=== PATIENT | female | born 1950 | race Caucasian/White ===

== ENCOUNTER → 2016-11-26 | Outpatient (CLI) | payer MEDICARE, BC ==
[~2016-11-26] MED LIST: ASPIRIN81 M2 PO; ASPIRIN81 MG PO; AUGMENTIN PO; BENICAR PO; COD LIVER OIL1 CA1 PO; FISH OIL 1,2001 EAC1 PO; HYDROCODON-ACE1 EAC9 PO; LEVOTHYROXINE50 MCG PO; LOSARTAN-HCTZ1 EAC3 PO; MELOXICAM15 MG PO; NIACIN500 M2 PO; OMEPRAZOLE20 M1 PO; SYNTHROID0.05 MG PO; VICODIN PO; VITAMIN D31000 UNI1 PO
--- NOTE | ~2016-11-26 | MR17 ---
[facility] A Service of [facility] RADIOLOGY TEXT RESULTS PATIENT: OLEKSANDR NI LOCATION: [facility] : 48 UNIT #: [id number] AGE: [address]: Maliha Wright MD SEX: F ORDER DR: [id number] [facility] [address] [place], [place] [address] [id number] O MR#: [id number] Acc #: [id number] NAME: OLEKSANDR NI : 1950 SEX: F STUDY DATE/TIME: 11/26/2016 8:39 UNIT: [facility] ROOM: STUDY DESCRIPTION: MR Brain WWo Contrast Attending Physician: Maliha Wright M.D. Referring Physician: Maliha Wright M.D. Ordering Physician: Maliha Wright M.D. Primary Care Physician: Maliha Wright M.D. MRI CENTER REPORT This report is preliminary unless electronic signature is present. EXAM MRI brain with and without HISTORY Left temporal pain off and on for years, most recently 2 weeks ago. Pain for 3 days. No trauma. No cancer. History of hypertension. COMMENT MRI of the brain was performed prior to and following intravenous administration of 20 mL of MultiHance. COMPARISON Head CT comparison is from 2012. FINDINGS There is no evidence for a recent ischemic insult on the diffusion series. No Chiari-1 malformation. No extraaxial fluid collection. The major intracranial flow voids are maintained. Mastoid air cells are clear. Paranasal sinuses are clear. Mild white matter signal abnormality periventricular white matter within the range expected for age group probably related to small vessel disease. No MRI evidence for intracranial hemorrhage. No intracranial mass effect. Following contrast administration, no pathologic intracranial enhancement. IMPRESSION 1. Essentially age-appropriate MRI of the brain with and without contrast. Minor probable sequelae of small vessel disease noted. Dictated by... Emma Crawford M.D. [facility] A Service of [facility] RADIOLOGY TEXT RESULTS PATIENT: OLEKSANDR NI LOCATION: [facility] : 48 UNIT #: [id number] AGE: [address]: Maliha Wright MD SEX: F ORDER DR: THIS IS AN ELECTRONICALLY VERIFIED REPORT Emma Crawford M.D. at 11/27/2016 2:53 PM SAC/laverne TD: 11/27/2016 08:52 JOB #: [id number] MRI CENTER REPORT Page 1 of 1 COPY
[2016-11-26 08:41] LABS: POC - CREATININE 0.98 mg/dL (0.44-1.03)
== END | disposition home or self-care (01) ==
LOC: CMRI 08:00
PROVIDERS: Family Medicine
DX: R51 Headache (principal)
CPT/HCPCS: 70553; 82565; A9577